=== PATIENT | male | born 1975 | race Caucasian/White ===

== ENCOUNTER 2018-01-07 16:32 | Emergency (ER) | payer OTHER ==
[2018-01-07] MEDS: AMOXICILLIN/CLAV 875 MG TAB PO (17:52)
[2018-01-07] MEDS: HYDROCODONE/APAP (5/325) TAB PO (17:52)
[2018-01-07] MEDS: DIPHTH/TET/ACEL PERTUSS (ADULT) 0.5 ML VIAL IM* (17:53)
== END 2018-01-07 19:10 | disposition home or self-care (01) ==
LOC: FTE 16:32
DX: S61.032A Puncture wound without foreign body of left thumb without damage to nail, initial encounter (principal); X58.XXXA Exposure to other specified factors, initial encounter; Y92.9 Unspecified place or not applicable; Z23 Encounter for immunization
CPT/HCPCS: 29125; 73130-LT; 90471; 90715; 99284-25

== ENCOUNTER 2019-04-03 20:22 | Emergency (ER) | payer OTHER | END 2019-04-03 21:36 | disposition home or self-care (01) | LOC: FTE 20:22 | DX: R21 Rash and other nonspecific skin eruption (principal) | CPT/HCPCS: 99282; Z7502 ==